=== PATIENT | female | born 1990 | race Caucasian/White ===

== ENCOUNTER 2016-10-23 11:24 | Emergency (ER) | payer OTHER ==
[~2016-10-23] VITALS: Ht 157.5 cm; Wt 89.0 kg
[~2016-10-23 11:24] MED LIST: ACET500C5 PO
[2016-10-23 11:28] VITALS: Ht 157.5 cm; Wt 89.0 kg
[2016-10-23 12:56] LABS: URINE BLOOD (Dip) POC Trace-lysed (NEGATIVE)
[2016-10-23 13:16] LABS: ADD UMIC YES; URINE BILIRUBIN (Dip) NEGATIVE (NEGATIVE); URINE BLOOD (Dip) TRACE (NEGATIVE); URINE COLOR LT. YELLOW (YELLOW); URINE GLUCOSE (Dip) NEGATIVE (NEGATIVE); URINE KETONES (Dip) NEGATIVE (NEGATIVE); URINE LEUKOCYTE ESTERASE (Dip) NEGATIVE (NEGATIVE); URINE NITRITE (Dip) NEGATIVE (NEGATIVE); URINE TOTAL PROTEIN (Dip) NEGATIVE (NEGATIVE); URINE UROBILINOGEN (Dip) 0.2 E.U./dL (0.1-1.0)
[2016-10-23 13:32] LABS: BASOPHILS % 0.7 % (0.0-2.0); EOSINOPHILS % 0.8 % (0.0-7.0); HEMATOCRIT 40.2 % (37.0-47.0); HEMOGLOBIN 13.7 g/dl (12.0-16.0); LYMPHOCYTES # 1.7 10^3/ul (0.8-2.9); LYMPHOCYTES % 29.7 % (15.0-51.0); MEAN CORPUSCULAR HEMOGLOBIN 30.7 pg (29.0-33.0); MEAN CORPUSCULAR VOLUME 90.4 fl (82.0-101.0); MEAN PLATELET VOLUME 8.9 fl (7.4-10.4); MONOCYTE # 0.3 10^3/ul (0.3-0.9); MONOCYTES % 5.6 % (0.0-11.0); NEUTROPHIL # 3.5 10^3/ul (1.6-7.5); NEUTROPHILS % 63.2 % (39.0-77.0); PLATELET COUNT 313 10^3/UL (140-440); RED BLOOD COUNT 4.45 10^6/ul (4.20-5.40); RED CELL DISTRIBUTION WIDTH 13.1 % (11.5-14.5); UNCORRECTED WBC 5.6 10^3/ul (4.8-10.8); WHITE BLOOD COUNT 5.6 10^3/ul (4.8-10.8)
[2016-10-23] MEDS ORDERED: ACETAMINOPHEN 500 MG TAB PO STA (13:33)
[2016-10-23 13:34] LABS: CONDITION 1
[2016-10-23 13:50] LABS: BACTERIA,URINE FEW; URINE RBCS NONE SEEN /HPF (0)
--- NOTE | 2016-10-23 14:10 | RADRPT ---
PROCEDURE: US OB. CLINICAL INDICATION: Pelvic pain. TECHNIQUE: Multiple transabdominal sonographic images of the pelvis were obtained. COMPARISON: 10/06/2016. FINDINGS: The uterus is slightly retroflexed in position. There is a single live intrauterine with f etal heart motion of 156 beats per minute is now present. A small pole and yolk sac are prese nt. CRL is 0.68 cm, which is compatible with a 6 weeks 4-day gestational age. The cervix is closed . There is no free pelvic fluid. The right ovary is not visualized. The left ovary measures 6.6 x 4.5 x 4.6 cm. There is a 5.4 x 4. 1 x 4.1 cm cyst, which is unchanged. There are no adnexal masses. IMPRESSION: Single live intrauterine of 6 weeks 4 days using current ultrasound measurements with an e stimated date of delivery of approximately 06/15/2017. Left ovarian cyst, grossly unchanged. RPTAT: HLST .Jie Vitale MD, MD Date Time Electronically viewed and signed by .Jie Vitale MD, MD on 10/23/2016 14:10 .T/
--- NOTE | 2016-10-23 14:18 | ERD ---
ER Documentation Chief Complaint Date/Time DATE: 10/23/16 TIME: 14:13 Chief Complaint pregnat with pelvi pain HPI This is 26-year-old female who presents to the emergency department today with on and off abdominal cramping and pelvic pain. Patient is . Patient was seen here in the emergency department last month and had an OB workup. Patient did follow up with her clinic and was seen at her clinic today and was instructed to come here to the emergency department for further evaluation and management. Denies any fevers or chills, dysuria. ROS All systems reviewed and are negative except as per history of present illness. Medications Home Meds Active Scripts Acetaminophen* (Tylophen*) 500 Mg Capsule, 1 CAP PO Q6H Y for PAIN AND OR ELEVATED TEMP, #30 CAP Prov:FRANCOIS ROWAN PA-C 10/23/16 Acetaminophen* (Tylophen*) 500 Mg Capsule, 1 CAP PO Q6H Y for PAIN AND OR ELEVATED TEMP, #30 CAP Prov:FRANCOIS ROWAN PA-C 10/06/16 PMhx/Soc History of Surgery: Yes (csection [id number] ago, LEAP 2012) Anesthesia Reaction: No Hx Neurological Disorder: No Hx Respiratory Disorders: No Hx Cardiac Disorders: No Hx Psychiatric Problems: No Hx Miscellaneous Medical Probl: No Hx Alcohol Use: No Hx Substance Use: No Hx Tobacco Use: No Smoking Status: Never smoker Physical Exam Vitals Vital Signs Date Time Temp Pulse Resp B/P Pulse Ox O2 Delivery O2 Flow Rate FiO2 10/23/16 11:28 98.1 73 20 116/70 99 Physical Exam Const: No acute distress Head: Atraumatic Eyes: Normal Conjunctiva ENT: Normal External Ears, Nose and Mouth. Neck: Full range of motion..~ No meningismus. Resp: Clear to auscultation bilaterally Cardio: Regular rate and rhythm, no murmurs Abd: Soft, left-sided pelvic pain and suprapubic tenderness non distended. Normal bowel sounds. No right lower quadrant pain. No tenderness to McBurney's. Skin: No petechiae or rashes Neur: Awake and alert Psych: Normal Mood and Affect Result Diagram: 10/23/16 1320 Results 24 hrs Laboratory Tests Test 10/23/16 12:52 10/23/16 12:56 10/23/16 13:20 Urine Bacteria FEW Urine Bilirubin NEGATIVE Urine Clarity CLEAR Urine Color LT. YELLOW Urine Epithelial Cells FEW Urine Glucose NEGATIVE% Urine Hemoglobin TRACE Urine Ketones NEGATIVE Urine Leukocyte Esterase NEGATIVE Urine Microscopic RBC NONE SEEN/HPF Urine Microscopic WBC 2-5/HPF Urine Nitrite NEGATIVE Urine Specific Anselmo >=1.030 Urine Total Protein NEGATIVE Urine Urobilinogen 0.2 E.U./dL Urine pH 6.0 Bedside Urine Blood Trace-lysed Bedside Urine Glucose (UA) Negative Bedside Urine Ketones (LAB) Negative Bedside Urine Leukocyte Esterase (L Negative Bedside Urine Nitrite (LAB) Negative Bedside Urine Protein (LAB) Negative Bedside Urine pH (LAB) 6.0 Basophils # 0.010^3/ul Basophils % 0.7% Beta HCG, Quantitative 70556.0mIU/ml Eosinophils # 0.010^3/ul Eosinophils % 0.8% Hematocrit 40.2% Hemoglobin 13.7g/dl Lymphocytes # 1.710^3/ul Lymphocytes % 29.7% Mean Corpuscular Hemoglobin 30.7pg Mean Corpuscular Hemoglobin Concent 34.0g/dl Mean Corpuscular Volume 90.4fl Mean Platelet Volume 8.9fl Monocytes # 0.310^3/ul Monocytes % 5.6% Neutrophils # 3.510^3/ul Neutrophils % 63.2% Nucleated Red Blood Cells # 0.010^3/ul Nucleated Red Blood Cells % 0.0/100WBC Platelet Count 87283^3/UL Red Blood Count 4.4510^6/ul Red Cell Distribution Width 13.1% White Blood Count 5.610^3/ul Current Medications Medications (Trade) Dose Ordered Sig/Brittni Route PRN Reason Start Time Stop Time Status Last Admin Dose Admin Acetaminophen (Tylenol Tab) 500 mg ONCE STAT PO 10/23/16 13:33 10/23/16 13:34 DC 10/23/16 13:57 DIAGNOSTIC IMAGING REPORT Patient: KIMBERLY KILGORE : 1990 Age: 26 Sex: F MR #: [id number] DOS: 10/23/16 1258 Ordering MD: FRANCOIS ROWAN PA-C Location: [facility] Room/Bed: PROCEDURE: US OB. CLINICAL INDICATION: Pelvic pain. TECHNIQUE: Multiple transabdominal sonographic images of the pelvis were obtained. COMPARISON: 10/06/2016. FINDINGS: The uterus is slightly retroflexed in position. There is a single live intrauterine with heart motion of 156 beats per minute is now present. A small pole and yolk sac are present. CRL is 0.68 cm, which is compatible with a 6 weeks 4-day gestational age. The cervix is closed. There is no free pelvic fluid. The right ovary is not visualized. The left ovary measures 6.6 x 4.5 x 4.6 cm. There is a 5.4 x 4.1 x 4.1 cm cyst, which is unchanged. There are no adnexal masses. IMPRESSION: Single live intrauterine of 6 weeks 4 days using current ultrasound measurements with an estimated date of delivery of approximately 06/15/2017. Left ovarian cyst, grossly unchanged. RPTAT: HLST .Jie Vitale MD, MD Date Time Electronically viewed and signed by .Jie Vitale MD, MD on 10/23/2016 14:10 .T/ CC: FRANCOIS ROWAN PA-C/MDM Is a 26-year-old female who presents to the emergency department today for further evaluation after being sent by her clinic to ectopic . I did see this patient here in the emergency department when she initially had abdominal cramping. That was on October 06 when she presented for intermittent cramping and . Her beta Quant that time was 274.8. Her UA was negative for infection. Her ultrasound showed no intrauterine gestational sac. Endometrium was thickened without gross evidence of focal lesion. There was a simple cyst in the left ovary. There was no ovarian torsion or solid adnexal mass. There was a mild amount of pelvic free fluid. She was unable to follow up with her doctor until today October 23. At that time patient had very limited abdominal pain had low suspicion for acute surgical abdomen. Patient was Rh positive (O +) Patient abdominal pain and cramping has persisted. I repeated laboratory work as well as an ultrasound. Laboratory work is no elevated white blood cell count. She is not anemic. Her platelets are within normal limits. UA is negative. Beta Quant h[place] 88008.0 Rh status Rh+ Ultrasound shows a single live intrauterine of 6 weeks and 4 days using current measurements with an estimated delivery date apparently 2006 18. There is a left ovarian cyst. There are no adnexal masses. There is no pelvic free fluid. Patient's abdominal pain appears to be suprapubic and along the left side of her pelvis. That may be related to ovarian cyst as well. Patient is afebrile and otherwise well-appearing. She has had no nausea or vomiting. She has no elevated white blood cell count. I have low suspicion for any acute surgical abdomen. Was given Tylenol here in the emergency department. We'll give her a prescription for home. She was instructed to keep her up when with her [employer] next week. At this time the patient is stable for discharge and outpatient management. Patient should follow up with their PCP in the next 1-2 days. They may return to the emergency department sooner for any persistent or worsening of symptoms. Patient understood and agreed with the plan. Departure Diagnosis: Primary Impression: Pelvic pain during in first trimester, antepartum Condition: FRANCOIS Maldonado PA-C Oct 23, 2016 14:18
[2016-10-23] MEDS ORDERED: ACET500C5 PO (15:25)
[2016-10-23 15:34] VITALS: BP 115/75; PULSE 73; RESP 20; TEMP 98.3
== END 2016-10-23 15:37 | disposition home or self-care (01) ==
LOC: FTE 11:24
DX: O26.891 Other specified pregnancy related conditions, first trimester (principal); R10.2 Pelvic and perineal pain; Z3A.01 Less than 8 weeks gestation of pregnancy
CPT/HCPCS: 76801; 81001; 84702; 85025; Z7502; Z7610; 81003